=== PATIENT | female | born 1955 | race Caucasian/White ===

== ENCOUNTER → 2016-08-13 | Outpatient (CLI) | payer BC | END | disposition home or self-care (01) | LOC: RAD 11:04 | DX: M54.17 Radiculopathy, lumbosacral region (principal); M47.897 Other spondylosis, lumbosacral region | CPT/HCPCS: 72114; 72148 ==

== ENCOUNTER 2016-09-10 20:00 | Inpatient (IN) | payer BC ==
[~2016-09-10] VITALS: Ht 165.1 cm; Wt 98.4 kg
[2016-09-10 19:00] VITALS: BP 148/86
[2016-09-10 20:00] VITALS: BP 148/86
[2016-09-10] MEDS ORDERED: OXYCODONE HCL/ACETAMINOPHEN 5/325MG TABLET PO PRN (21:15)
[2016-09-10] MEDS ORDERED: NA PHOS,M-B/NA PHOS,DI-BA ENEMA 118ML PR ONE (21:15)
[2016-09-10] MEDS ORDERED: MAGNESIUM HYDROXIDE 400MG/5ML 30ML UDC PO PRN (21:15)
[2016-09-10] MEDS ORDERED: IPRATROPIUM/ALBUTEROL 0.5-3(2.5)MG/3ML NEB HHN PRN (21:15)
[2016-09-10] MEDS ORDERED: LACTULOSE 20G/30ML UDC PO PRN (21:15)
[2016-09-11 06:24] LABS: BASOPHILS % 0.1 % (0.0-2.0); EOSINOPHILS % 4.7 % (0.0-5.0); HEMATOCRIT. 37.9 % (36.0-48.0); HEMOGLOBIN. 12.4 g/dL (12.0-16.0); LYMPHOCYTES % 25.3 % (20.0-50.0); MEAN CORPUSCULAR HEMOGLOBIN 26.4 pg (28.0-32.0); MEAN CORPUSCULAR HGB CONC 32.7 g/dL (31.0-37.0); MEAN CORPUSCULAR VOLUME 80.8 fL (81.0-99.0); MONOCYTES % 7.8 % (2.0-8.0); NEUTROPHILS % 62.1 % (40.0-76.0); PLATELET 194 x1000/uL (130-400); RED BLOOD CELL COUNT 4.69 mill/uL (4.2-5.4); RED CELL DISTRIBUTION WIDTH 17.2 % (11.6-14.6); WHITE BLOOD COUNT 8.9 x1000/uL (4.5-11.0)
[2016-09-11 06:47] LABS: ALANINE AMINOTRANSFERASE 48 IU/L (13-61); ALBUMIN 2.7 g/dL (3.4-5.0); ANION GAP 11; CALCIUM 7.8 mg/dL (8.5-10.1); CARBON DIOXIDE 27 mEq/L (21-32); CHLORIDE 109 mEq/L (98-107); INDEX HEMOLYSI 1 (1-3); INDEX ICTERIC 1 (1-4); INDEX LIPEMIC 1 (1-3); UREA NITROGEN BLOOD 22 mg/dL (7-21); eGFR > 60 mL/min (>60)
[2016-09-11 06:48] LABS: PREALBUMIN 19.6 mg/dL (20.0-40.0)
[2016-09-11 08:00] VITALS: BP 136/83
[2016-09-11] MEDS ORDERED: POTASSIUM CHLORIDE 20MEQ TABLET SR PO NR (09:15)
[2016-09-11] MEDS: DOCUSATE SODIUM 100MG CAPSULE PO SCH ×2 (10:47→17:31)
[2016-09-11] MEDS ORDERED: DEXAMETHASONE 4MG TABLET PO NR (11:45)
[2016-09-11] MEDS: GABAPENTIN 300MG CAPSULE PO SCH ×2 (14:10→21:46)
[2016-09-11] MEDS ORDERED: LACTULOSE 20G/30ML UDC PO NR (14:24)
[2016-09-11] MEDS ORDERED: LACTULOSE 20G/30ML UDC PO PRN (14:30)
[2016-09-11 14:57] LABS: CLARITY URINE CLOUDY (CLEAR); COLOR URINE YELLOW (YELLOW); GLUCOSE URINE NEGATIVE (NEGATIVE); KETONES URINE NEGATIVE (NEGATIVE); LEUKOCYTE ESTERASE URINE 3+ (NEGATIVE); NITRITE URINE POSITIVE (NEGATIVE); OCCULT BLOOD URINE TRACE (NEGATIVE); PH URINE 5.5 (4.5-8.0); PROTEIN URINE NEGATIVE (NEGATIVE); SPECIFIC GRAVITY URINE 1.026 (1.005-1.030)
[2016-09-11 15:16] LABS: MUCUS URINE 1+ /lpf (< = 2+); SQUAMOUS EPITHELIAL CELL URINE FEW /lpf (RARE/1+)
[2016-09-11 15:17] LABS: BACTERIA URINE 4+; RBC URINE NONE SEEN /hpf (0-2); WBC URINE TNTC /hpf (0-2)
[2016-09-11 20:00] VITALS: BP 123/68
[2016-09-11] MEDS: DEXAMETHASONE 4MG TABLET PO SCH (21:47)
[2016-09-12] MEDS: GABAPENTIN 300MG CAPSULE PO SCH ×3 (05:44→21:20)
[2016-09-12 08:00] VITALS: BP 131/73
[2016-09-12] MEDS: DOCUSATE SODIUM 100MG CAPSULE PO SCH ×2 (08:13→16:20)
[2016-09-12] MEDS: DEXAMETHASONE 4MG TABLET PO SCH ×2 (08:13→21:20)
[2016-09-12 20:00] VITALS: BP 129/83
[2016-09-12 20:25] LABS: CLARITY URINE CLOUDY (CLEAR); COLOR URINE YELLOW (YELLOW); GLUCOSE URINE TRACE (NEGATIVE); KETONES URINE NEGATIVE (NEGATIVE); LEUKOCYTE ESTERASE URINE 2+ (NEGATIVE); NITRITE URINE NEGATIVE (NEGATIVE); OCCULT BLOOD URINE NEGATIVE (NEGATIVE); PROTEIN URINE TRACE (NEGATIVE); SPECIFIC GRAVITY URINE 1.036 (1.005-1.030)
[2016-09-12 20:48] LABS: BACTERIA URINE 2+; RBC URINE 0-2 /hpf (0-2); SQUAMOUS EPITHELIAL CELL URINE 1+ /lpf (RARE/1+); WBC URINE 25-50 /hpf (0-2)
[2016-09-12] MEDS: LACTULOSE 20G/30ML UDC PO PRN (21:20)
[2016-09-13] MEDS: LACTULOSE 20G/30ML UDC PO PRN ×2 (01:31→05:32)
[2016-09-13] MEDS: GABAPENTIN 300MG CAPSULE PO SCH ×3 (05:31→21:14)
[2016-09-13 07:04] LABS: ANION GAP 13; CALCIUM 8.2 mg/dL (8.5-10.1); CARBON DIOXIDE 24 mEq/L (21-32); CHLORIDE 109 mEq/L (98-107); HDL CHOLESTEROL 40 mg/dL (40-59); INDEX HEMOLYSI 1 (1-3); INDEX ICTERIC 1 (1-4); INDEX LIPEMIC 1 (1-3); IRON 48 ug/dL (50-175); LDL CHOLESTEROL 82 mg/dL (5-100); TRIGLYCERIDE 73 mg/dL (0-150); UREA NITROGEN BLOOD 19 mg/dL (7-21); eGFR > 60 mL/min (>60)
[2016-09-13 07:10] LABS: BASOPHILS % 0.3 % (0.0-2.0); EOSINOPHILS % 3.4 % (0.0-5.0); HEMATOCRIT. 36.3 % (36.0-48.0); HEMOGLOBIN. 11.8 g/dL (12.0-16.0); LYMPHOCYTES % 13.1 % (20.0-50.0); MEAN CORPUSCULAR HEMOGLOBIN 26.5 pg (28.0-32.0); MEAN CORPUSCULAR HGB CONC 32.6 g/dL (31.0-37.0); MEAN CORPUSCULAR VOLUME 81.3 fL (81.0-99.0); MEAN PLATELET VOLUME 9.1 fl (7.4-10.4); MONOCYTES % 4.9 % (2.0-8.0); NEUTROPHILS % 78.3 % (40.0-76.0); PLATELET 211 x1000/uL (130-400); RED BLOOD CELL COUNT 4.46 mill/uL (4.2-5.4); RED CELL DISTRIBUTION WIDTH 17.2 % (11.6-14.6); WHITE BLOOD COUNT 11.4 x1000/uL (4.5-11.0)
[2016-09-13 07:13] LABS: TOTAL IRON BINDING CAPACITY 332 ug/dL (250-450)
[2016-09-13 08:00] VITALS: BP 119/75
[2016-09-13] MEDS ORDERED: BISACODYL 10MG SUPP PR PRN (08:30)
[2016-09-13] MEDS ORDERED: NA PHOS,M-B/NA PHOS,DI-BA ENEMA 118ML PR PRN (08:30)
[2016-09-13] MEDS: DOCUSATE SODIUM 100MG CAPSULE PO SCH ×2 (09:32→17:50)
[2016-09-13] MEDS: DEXAMETHASONE 4MG TABLET PO SCH ×2 (09:32→21:14)
[2016-09-13 09:44] LABS: FOLIC ACID (FOLATE) SERUM 7.7 ng/mL (>5.38)
[2016-09-13 20:00] VITALS: BP 116/71
[2016-09-13] MEDS: POLYETHYLENE GLYCOL 3350 (17GM) 1 DOSE PACK PO SCH (21:14)
[2016-09-14] MEDS: GABAPENTIN 300MG CAPSULE PO SCH ×3 (05:34→21:46)
[2016-09-14 05:57] LABS: BASOPHILS % 0.4 % (0.0-2.0); EOSINOPHILS % 2.4 % (0.0-5.0); HEMATOCRIT. 37.2 % (36.0-48.0); HEMOGLOBIN. 12.2 g/dL (12.0-16.0); LYMPHOCYTES % 13.4 % (20.0-50.0); MEAN CORPUSCULAR HEMOGLOBIN 26.8 pg (28.0-32.0); MEAN CORPUSCULAR HGB CONC 32.8 g/dL (31.0-37.0); MEAN CORPUSCULAR VOLUME 81.7 fL (81.0-99.0); MEAN PLATELET VOLUME 8.9 fl (7.4-10.4); MONOCYTES % 4.2 % (2.0-8.0); NEUTROPHILS % 79.6 % (40.0-76.0); PLATELET 202 x1000/uL (130-400); RED BLOOD CELL COUNT 4.55 mill/uL (4.2-5.4); RED CELL DISTRIBUTION WIDTH 17.5 % (11.6-14.6); WHITE BLOOD COUNT 10.6 x1000/uL (4.5-11.0)
[2016-09-14 08:00] VITALS: BP 125/77
[2016-09-14] MEDS: DOCUSATE SODIUM 100MG CAPSULE PO SCH ×2 (09:35→18:18)
[2016-09-14] MEDS: DEXAMETHASONE 4MG TABLET PO SCH ×2 (09:35→21:47)
[2016-09-14] MEDS ORDERED: DIPHENHYDRAMINE HCL/ZINC ACET 28 GM CREAM TOP PRN (13:15)
[2016-09-14] MEDS ORDERED: LEVOFLOXACIN 500MG TABLET PO NR (14:15)
[2016-09-14] MEDS: FERROUS SULFATE 325MG TABLET PO SCH (18:18)
[2016-09-14 20:00] VITALS: BP 121/72
[2016-09-14] MEDS: POLYETHYLENE GLYCOL 3350 (17GM) 1 DOSE PACK PO SCH (21:46)
[2016-09-14] MEDS: DIPHENHYDRAMINE HCL/ZINC ACET 28 GM CREAM TOP PRN (23:09)
[2016-09-15] MEDS: DIPHENHYDRAMINE HCL/ZINC ACET 28 GM CREAM TOP PRN ×2 (02:41→14:20)
[2016-09-15] MEDS: GABAPENTIN 300MG CAPSULE PO SCH ×3 (06:34→21:32)
[2016-09-15 08:00] VITALS: BP 122/67
[2016-09-15] MEDS: DOCUSATE SODIUM 100MG CAPSULE PO SCH ×2 (08:36→17:40)
[2016-09-15] MEDS: FERROUS SULFATE 325MG TABLET PO SCH ×3 (08:37→17:40)
[2016-09-15] MEDS: DEXAMETHASONE 4MG TABLET PO SCH (08:37)
[2016-09-15] MEDS: LEVOFLOXACIN 250MG TABLET PO SCH (11:26)
[2016-09-15] MEDS: HYDROCORTISONE 1% CREAM 30GM TOP PRN ×2 (14:20→23:38)
[2016-09-15 20:00] VITALS: BP 112/70
[2016-09-15] MEDS: DEXAMETHASONE 1MG TABLET PO SCH (21:32)
[2016-09-15] MEDS: DIPHENHYDRAMINE 50MG CAPSULE PO PRN (21:32)
[2016-09-15] MEDS: POLYETHYLENE GLYCOL 3350 (17GM) 1 DOSE PACK PO SCH (21:46)
[2016-09-16] MEDS: GABAPENTIN 300MG CAPSULE PO SCH ×3 (06:14→21:18)
[2016-09-16 08:00] VITALS: BP 134/91
[2016-09-16] MEDS: DEXAMETHASONE 1MG TABLET PO SCH ×2 (09:28→21:19)
[2016-09-16] MEDS: DOCUSATE SODIUM 100MG CAPSULE PO SCH ×2 (09:28→17:07)
[2016-09-16] MEDS: FERROUS SULFATE 325MG TABLET PO SCH ×3 (09:29→17:06)
[2016-09-16] MEDS: LEVOFLOXACIN 250MG TABLET PO SCH (11:36)
[2016-09-16 13:06] LABS: 25-HYDROXY VITAMIN D3 8.6 ng/mL (.)
[2016-09-16 20:00] VITALS: BP 103/60
[2016-09-16] MEDS: POLYETHYLENE GLYCOL 3350 (17GM) 1 DOSE PACK PO SCH (21:18)
[2016-09-17] MEDS: DIPHENHYDRAMINE HCL/ZINC ACET 28 GM CREAM TOP PRN ×2 (04:30→21:23)
[2016-09-17] MEDS: HYDROCORTISONE 1% CREAM 30GM TOP PRN ×2 (04:31→21:22)
[2016-09-17] MEDS: GABAPENTIN 300MG CAPSULE PO SCH ×3 (05:49→21:15)
[2016-09-17 08:00] VITALS: BP 119/74
[2016-09-17] MEDS: DOCUSATE SODIUM 100MG CAPSULE PO SCH ×2 (08:09→17:45)
[2016-09-17] MEDS: DEXAMETHASONE 1MG TABLET PO SCH (08:09)
[2016-09-17] MEDS: FERROUS SULFATE 325MG TABLET PO SCH ×3 (08:09→17:45)
[2016-09-17] MEDS: LEVOFLOXACIN 250MG TABLET PO SCH (13:23)
[2016-09-17] MEDS: ERGOCALCIFEROL 50000UNITS CAPSULE PO SCH (17:45)
[2016-09-17 20:00] VITALS: BP 100/65
[2016-09-17] MEDS: DIPHENHYDRAMINE 50MG CAPSULE PO PRN (21:15)
[2016-09-17] MEDS: POLYETHYLENE GLYCOL 3350 (17GM) 1 DOSE PACK PO SCH (21:15)
[2016-09-18] MEDS: GABAPENTIN 300MG CAPSULE PO SCH ×3 (06:10→21:29)
[2016-09-18 08:00] VITALS: BP 150/80
[2016-09-18] MEDS: DOCUSATE SODIUM 100MG CAPSULE PO SCH ×2 (08:06→16:48)
[2016-09-18] MEDS: FERROUS SULFATE 325MG TABLET PO SCH ×3 (08:06→16:48)
[2016-09-18] MEDS ORDERED: DEXAMETHASONE 1MG TABLET PO SCH (09:00)
[2016-09-18] MEDS ORDERED: LIDOCAINE HCL 4% CREAM 76GM TUBE TP PRN (09:00)
[2016-09-18] MEDS: LEVOFLOXACIN 250MG TABLET PO SCH (10:52)
[2016-09-18] MEDS: HYDROCORTISONE 1% CREAM 30GM TOP PRN (15:09)
[2016-09-18] MEDS: DIPHENHYDRAMINE HCL/ZINC ACET 28 GM CREAM TOP PRN ×2 (15:09→20:10)
[2016-09-18 20:00] VITALS: BP 111/73
[2016-09-18] MEDS: POLYETHYLENE GLYCOL 3350 (17GM) 1 DOSE PACK PO SCH (20:10)
[2016-09-19] MEDS: HYDROCORTISONE 1% CREAM 30GM TOP PRN ×3 (04:18→22:36)
[2016-09-19] MEDS: DIPHENHYDRAMINE HCL/ZINC ACET 28 GM CREAM TOP PRN ×3 (04:19→22:36)
[2016-09-19] MEDS: GABAPENTIN 300MG CAPSULE PO SCH ×3 (06:50→22:27)
[2016-09-19 07:03] LABS: BASOPHILS % 0.8 % (0.0-2.0); EOSINOPHILS % 6.3 % (0.0-5.0); HEMATOCRIT. 35.6 % (36.0-48.0); HEMOGLOBIN. 11.5 g/dL (12.0-16.0); LYMPHOCYTES % 27.9 % (20.0-50.0); MEAN CORPUSCULAR HEMOGLOBIN 26.7 pg (28.0-32.0); MEAN CORPUSCULAR HGB CONC 32.3 g/dL (31.0-37.0); MEAN CORPUSCULAR VOLUME 82.7 fL (81.0-99.0); MEAN PLATELET VOLUME 8.7 fl (7.4-10.4); MONOCYTES % 8.8 % (2.0-8.0); NEUTROPHILS % 56.2 % (40.0-76.0); PLATELET 178 x1000/uL (130-400); RED BLOOD CELL COUNT 4.31 mill/uL (4.2-5.4); RED CELL DISTRIBUTION WIDTH 18.6 % (11.6-14.6); WHITE BLOOD COUNT 6.9 x1000/uL (4.5-11.0)
[2016-09-19 08:00] VITALS: BP 107/77
[2016-09-19] MEDS: DOCUSATE SODIUM 100MG CAPSULE PO SCH ×2 (08:00→16:29)
[2016-09-19] MEDS: FERROUS SULFATE 325MG TABLET PO SCH ×3 (08:00→16:29)
[2016-09-19 08:18] LABS: ALANINE AMINOTRANSFERASE 24 IU/L (13-61); ALBUMIN 2.4 g/dL (3.4-5.0); ANION GAP 11; CARBON DIOXIDE 30 mEq/L (21-32); CHLORIDE 106 mEq/L (98-107); INDEX HEMOLYSI 1 (1-3); INDEX ICTERIC 1 (1-4); INDEX LIPEMIC 1 (1-3); UREA NITROGEN BLOOD 14 mg/dL (7-21); eGFR > 60 mL/min (>60)
[2016-09-19] MEDS: LEVOFLOXACIN 250MG TABLET PO SCH (10:17)
[2016-09-19 20:00] VITALS: BP 107/48
[2016-09-19] MEDS: DIPHENHYDRAMINE 50MG CAPSULE PO PRN (20:16)
[2016-09-19] MEDS: POLYETHYLENE GLYCOL 3350 (17GM) 1 DOSE PACK PO SCH (20:17)
[2016-09-20] MEDS: GABAPENTIN 300MG CAPSULE PO SCH ×3 (05:33→22:10)
[2016-09-20] MEDS: DIPHENHYDRAMINE HCL/ZINC ACET 28 GM CREAM TOP PRN (05:37)
[2016-09-20 08:00] VITALS: BP 135/77
[2016-09-20] MEDS ORDERED: HYDROXYZINE 25MG TABLET PO PRN (09:00)
[2016-09-20] MEDS: LEVOFLOXACIN 250MG TABLET PO SCH (10:26)
[2016-09-20] MEDS: LORATADINE 10MG TABLET PO SCH (10:26)
[2016-09-20] MEDS: DOCUSATE SODIUM 100MG CAPSULE PO SCH ×2 (10:26→17:32)
[2016-09-20] MEDS: FERROUS SULFATE 325MG TABLET PO SCH ×3 (10:26→17:32)
[2016-09-20] MEDS: LIDOCAINE HCL 4% CREAM 76GM TUBE TP PRN (17:37)
[2016-09-20 20:00] VITALS: BP 111/63
[2016-09-20] MEDS: POLYETHYLENE GLYCOL 3350 (17GM) 1 DOSE PACK PO SCH (21:00)
[2016-09-20] MEDS: HYDROXYZINE 25MG TABLET PO PRN (21:13)
[2016-09-21] MEDS: LIDOCAINE HCL 4% CREAM 76GM TUBE TP PRN ×2 (03:08→10:46)
[2016-09-21] MEDS: GABAPENTIN 300MG CAPSULE PO SCH (05:25)
[2016-09-21 05:33] VITALS: BP 128/85
[2016-09-21] MEDS ORDERED: DIPHENHYDRAMINE 50MG/ML VIAL IV NR (06:08)
[2016-09-21] MEDS ORDERED: DIPHENHYDRAMINE 25MG CAPSULE PO NR (06:30)
[2016-09-21] MEDS ORDERED: LORATADINE 10MG TABLET PO SCH (08:30)
[2016-09-21 08:31] VITALS: BP 128/73
[2016-09-21] MEDS: LORATADINE 10MG TABLET PO SCH (10:41)
[2016-09-21] MEDS: FAMOTIDINE 20MG TABLET PO SCH ×2 (10:41→20:33)
[2016-09-21] MEDS: FERROUS SULFATE 325MG TABLET PO SCH ×2 (10:42→11:26)
[2016-09-21] MEDS: DULOXETINE HCL 30MG DR CAPSULE PO SCH (10:45)
[2016-09-21] MEDS: DOCUSATE SODIUM 100MG CAPSULE PO SCH ×2 (10:45→16:51)
[2016-09-21] MEDS: DIPHENHYDRAMINE HCL/ZINC ACET 28 GM CREAM TOP PRN ×2 (10:47→20:35)
[2016-09-21] MEDS ORDERED: PREDNISONE 20MG TABLET PO NR (16:00)
[2016-09-21 20:00] VITALS: BP 141/77
[2016-09-21] MEDS: HYDROXYZINE 25MG TABLET PO PRN (20:33)
[2016-09-21] MEDS: HYDROCORTISONE 1% CREAM 30GM TOP PRN (20:35)
[2016-09-21] MEDS: POLYETHYLENE GLYCOL 3350 (17GM) 1 DOSE PACK PO SCH (20:36)
[2016-09-22] MEDS: DIPHENHYDRAMINE 50MG CAPSULE PO PRN ×3 (02:03→21:48)
[2016-09-22 07:14] LABS: BASOPHILS % 0.3 % (0.0-2.0); EOSINOPHILS % 3.7 % (0.0-5.0); HEMOGLOBIN. 11.2 g/dL (12.0-16.0); LYMPHOCYTES % 18.4 % (20.0-50.0); MEAN CORPUSCULAR HGB CONC 32.8 g/dL (31.0-37.0); MEAN CORPUSCULAR VOLUME 82.3 fL (81.0-99.0); MEAN PLATELET VOLUME 8.6 fl (7.4-10.4); MONOCYTES % 7.3 % (2.0-8.0); NEUTROPHILS % 70.3 % (40.0-76.0); PLATELET 174 x1000/uL (130-400); RED BLOOD CELL COUNT 4.13 mill/uL (4.2-5.4); RED CELL DISTRIBUTION WIDTH 18.5 % (11.6-14.6); WHITE BLOOD COUNT 7.3 x1000/uL (4.5-11.0)
[2016-09-22 07:54] LABS: CHLORIDE 110 mEq/L (98-107); INDEX HEMOLYSI 1 (1-3); INDEX ICTERIC 1 (1-4); INDEX LIPEMIC 1 (1-3)
[2016-09-22 08:00] VITALS: BP 153/89
[2016-09-22] MEDS: DULOXETINE HCL 30MG DR CAPSULE PO SCH (08:05)
[2016-09-22] MEDS: DOCUSATE SODIUM 100MG CAPSULE PO SCH ×2 (08:06→17:58)
[2016-09-22 08:48] LABS: ALANINE AMINOTRANSFERASE 21 IU/L (13-61); ALBUMIN 2.6 g/dL (3.4-5.0); ANION GAP 12; CALCIUM 8.2 mg/dL (8.5-10.1); CARBON DIOXIDE 26 mEq/L (21-32); UREA NITROGEN BLOOD 12 mg/dL (7-21); eGFR > 60 mL/min (>60)
[2016-09-22 12:33] LABS: THYROID STIMULATING HORMONE 1.5 uIU/mL (0.36-3.74)
[2016-09-22 20:00] VITALS: BP 135/75
[2016-09-22] MEDS: POLYETHYLENE GLYCOL 3350 (17GM) 1 DOSE PACK PO SCH (21:00)
[2016-09-23] MEDS: LIDOCAINE HCL 4% CREAM 76GM TUBE TP PRN (00:22)
[2016-09-23] MEDS: CARISOPRODOL 350 MG TABLET PO PRN (02:15)
[2016-09-23] MEDS: DULOXETINE HCL 30MG DR CAPSULE PO SCH (08:33)
[2016-09-23] MEDS: DOCUSATE SODIUM 100MG CAPSULE PO SCH ×2 (08:34→16:40)
[2016-09-23 08:39] VITALS: BP 138/94
[2016-09-23] MEDS: DIPHENHYDRAMINE 50MG CAPSULE PO PRN ×2 (12:30→21:41)
[2016-09-23] MEDS: CARBAMAZEPINE 200MG TABLET PO SCH (16:40)
[2016-09-23 20:00] VITALS: BP 147/83
[2016-09-23] MEDS: POLYETHYLENE GLYCOL 3350 (17GM) 1 DOSE PACK PO SCH (21:00)
[2016-09-23] MEDS ORDERED: GABAPENTIN 100MG CAPSULE PO SCH (21:00)
[2016-09-23] MEDS: ZOLPIDEM TARTRATE 5MG TABLET PO PRN (23:57)
[2016-09-24] MEDS: ZOLPIDEM TARTRATE 5MG TABLET PO PRN (00:01)
[2016-09-24 08:00] VITALS: BP 123/70
[2016-09-24] MEDS: ERGOCALCIFEROL 50000UNITS CAPSULE PO SCH (08:08)
[2016-09-24] MEDS: DOCUSATE SODIUM 100MG CAPSULE PO SCH ×2 (08:08→17:18)
[2016-09-24] MEDS: CARBAMAZEPINE 200MG TABLET PO SCH ×2 (08:08→17:18)
[2016-09-24] MEDS: DULOXETINE HCL 30MG DR CAPSULE PO SCH (08:08)
[2016-09-24 20:00] VITALS: BP 150/99
[2016-09-24] MEDS: CARISOPRODOL 350 MG TABLET PO PRN (20:46)
[2016-09-24] MEDS: POLYETHYLENE GLYCOL 3350 (17GM) 1 DOSE PACK PO SCH (20:46)
[2016-09-25 08:00] VITALS: BP 151/98
[2016-09-25] MEDS: DULOXETINE HCL 30MG DR CAPSULE PO SCH (08:10)
[2016-09-25] MEDS: CARBAMAZEPINE 200MG TABLET PO SCH (08:10)
[2016-09-25] MEDS: DOCUSATE SODIUM 100MG CAPSULE PO SCH ×2 (08:10→17:00)
[2016-09-25] MEDS ORDERED: CARBAMAZEPINE 200MG TABLET PO SCH (13:00)
[2016-09-25 20:00] VITALS: BP 135/90
[2016-09-25] MEDS: POLYETHYLENE GLYCOL 3350 (17GM) 1 DOSE PACK PO SCH (20:03)
[2016-09-25] MEDS ORDERED: CARBAMAZEPINE 100MG TABLET CHEW PO SCH (21:00)
[2016-09-25] MEDS: CARISOPRODOL 350 MG TABLET PO PRN (23:29)
[2016-09-26] MEDS: TRAMADOL 50MG TABLET PO PRN ×2 (00:43→06:43)
[2016-09-26 01:36] VITALS: BP 132/77
[2016-09-26] MEDS ORDERED: CARBAMAZEPINE 200MG TABLET PO SCH (07:15)
[2016-09-26 08:00] VITALS: BP 147/99
[2016-09-26] MEDS: DOCUSATE SODIUM 100MG CAPSULE PO SCH ×2 (08:53→18:12)
[2016-09-26] MEDS: DULOXETINE HCL 30MG DR CAPSULE PO SCH (08:53)
[2016-09-26] MEDS ORDERED: HYDROCODONE/ACETAMINOPHEN 5/325MG TABLET PO PRN (09:45)
[2016-09-26] MEDS ORDERED: DULOXETINE HCL 30MG DR CAPSULE PO NR (09:45)
[2016-09-26] MEDS ORDERED: TRAMADOL 50MG TABLET PO PRN (09:45)
[2016-09-26 20:00] VITALS: BP 135/83
[2016-09-26] MEDS: POLYETHYLENE GLYCOL 3350 (17GM) 1 DOSE PACK PO SCH (20:54)
[2016-09-26] MEDS ORDERED: ALPRAZOLAM 0.5 MG TABLET PO PRN (21:00)
[2016-09-27 08:00] VITALS: BP 134/95
[2016-09-27] MEDS: DOCUSATE SODIUM 100MG CAPSULE PO SCH (08:27)
[2016-09-27] MEDS ORDERED: DULOXETINE HCL 60MG DR CAPSULE PO SCH (09:00)
[2016-09-27 12:18] VITALS: BP 134/94
== END 2016-09-27 13:54 | disposition home health service (06) | DRG 551 ==
PROVIDERS: ADMIT Physical Medicine & Rehabilitation Spinal Cord Injury Medicine; ATTEND Internal Medicine Critical Care Medicine
DX: M48.06 Spinal stenosis, lumbar region (principal); A41.51 Sepsis due to Escherichia coli [E. coli]; G82.20 Paraplegia, unspecified; E46 Unspecified protein-calorie malnutrition; N39.0 Urinary tract infection, site not specified; G97.41 Accidental puncture or laceration of dura during a procedure; M21.371 Foot drop, right foot; E66.01 Morbid (severe) obesity due to excess calories; D64.9 Anemia, unspecified; Z96.653 Presence of artificial knee joint, bilateral; M54.16 Radiculopathy, lumbar region; M21.372 Foot drop, left foot; E55.9 Vitamin D deficiency, unspecified; I10 Essential (primary) hypertension; B96.89 Other specified bacterial agents as the cause of diseases classified elsewhere; G47.00 Insomnia, unspecified; K59.00 Constipation, unspecified; Y83.8 Other surgical procedures as the cause of abnormal reaction of the patient, or of later complication, without mention of misadventure at the time of the procedure; R00.1 Bradycardia, unspecified; R26.9 Unspecified abnormalities of gait and mobility; Z68.38 Body mass index [BMI] 38.0-38.9, adult; Z88.1 Allergy status to other antibiotic agents; Z88.8 Allergy status to other drugs, medicaments and biological substances
CPT/HCPCS: 36415; 80048; 80053; 80061; 81001; 82306; 82607; 82728; 82746; 83036; 83540; 83550; 84134; 84443; 84630; 85025; 87077; 87086; 87186; 93923; 93970; 97110; 97112; 97116; 97163; 97167; 97530; 97535; C1893; J7512; J8540; Q0163

== ENCOUNTER → 2018-05-15 | Outpatient (CLI) | payer BC ==
[2018-05-15 08:23] LABS: EOSINOPHILS % 2.4 % (0.0-5.0); HEMATOCRIT. 42.1 % (36.0-48.0); HEMOGLOBIN. 14.1 g/dL (12.0-16.0); LYMPHOCYTES % 19.2 % (20.0-50.0); MEAN CORPUSCULAR HEMOGLOBIN 28.1 pg (28.0-32.0); MEAN CORPUSCULAR VOLUME 84.3 fL (81.0-99.0); MEAN PLATELET VOLUME 8.7 fl (7.4-10.4); MONOCYTES % 6.8 % (2.0-8.0); NEUTROPHILS % 70.6 % (40.0-76.0); PLATELET 180 x1000/uL (130-400); RED CELL DISTRIBUTION WIDTH 15.9 % (11.6-14.6)
[2018-05-15 09:02] LABS: CHLORIDE 109 mEq/L (98-107)
[2018-05-15 09:14] LABS: LDL CHOLESTEROL 115 mg/dL (5-100)
[2018-05-15 09:16] LABS: HDL CHOLESTEROL 61 mg/dL (40-59)
== END | disposition home or self-care (01) ==
LOC: LAB 07:50
PROVIDERS: ATTEND Internal Medicine
DX: I10 Essential (primary) hypertension (principal); D64.9 Anemia, unspecified
CPT/HCPCS: 36415; 80061; 83036

== ENCOUNTER → 2018-09-09 | Outpatient (CLI) | payer BC ==
[2018-09-09 11:26] LABS: CHLORIDE 108 mEq/L (98-107)
== END | disposition home or self-care (01) ==
LOC: LAB 10:18
PROVIDERS: ATTEND Internal Medicine
DX: I10 Essential (primary) hypertension (principal); E66.9 Obesity, unspecified
CPT/HCPCS: 36415; 82306; 84443

== ENCOUNTER 2019-08-29 01:20 | Emergency (ER) | payer SELFPAY ==
[2019-08-29 04:24] VITALS: BP 153/90
== END 2019-08-29 04:25 | disposition home or self-care (01) ==
LOC: ER 01:20
DX: U07.1 COVID-19 (principal); J06.9 Acute upper respiratory infection, unspecified; R50.9 Fever, unspecified; I10 Essential (primary) hypertension; Z96.659 Presence of unspecified artificial knee joint; Z91.011 Allergy to milk products; Z88.3 Allergy status to other anti-infective agents; Z88.1 Allergy status to other antibiotic agents
CPT/HCPCS: 71045; 87635; 87804; 99284; U0002